=== PATIENT | male | born 1995 | race Caucasian/White ===

== ENCOUNTER 2021-11-05 06:48 | Emergency (ER) | payer OTHER ==
[~2021-11-05] VITALS: Ht 167.6 cm; Wt 108.9 kg
[2021-11-05 06:55] VITALS: BP 129/103
--- NOTE | 2021-11-05 07:03 | NUR ---
Place patient to Bed 4 and change to a gown.
--- NOTE | 2021-11-05 07:24 | NUR ---
DR. PIERRE BEDSIDE EVALUATINIG PT
[2021-11-05] MEDS ORDERED: KETOROLAC 60 MG/2 ML VIAL IM ONE (07:30)
--- NOTE | 2021-11-05 07:37 | NUR ---
26Y MALE PATIENT PRESENTS TO ED WITH NECK/BACK PAIN AND JAW PAIN. PT STATES "HE HAS HAD JAW CLICKING X1 MONTH." PER PATIENT THE BACK/NECK PAIN STARTED X1 HR AGO WHILE AT WORK. DENIES N/V/D; SKIN IS PINK/WARM/DRY; AAOX4 WITH EVEN AND STEADY GAIT; LUNGS CLEAR BL; HR EVEN AND REGULAR; PT DENIES ANY FEVER, CP, SOB, OR COUGH AT THIS TIME; PATIENT STATES PAIN OF 0/10 AT THIS TIME; VSS; PATIENT POSITIONED FOR COMFORT; HOB ELEVATED; BEDRAILS UP X2; BED DOWN. ER MD MADE AWARE OF PT STATUS. Hx : NONE
[2021-11-05] MEDS ORDERED: IBUP-2213 PO (08:19)
[2021-11-05] MEDS ORDERED: ACET-8386 PO (08:19)
[2021-11-05 08:38] VITALS: BP 129/103
--- NOTE | 2021-11-05 08:38 | NUR ---
Patient discharged with v/s stable. Written and verbal after care instructions given and explained. Patient alert, oriented and verbalized understanding of instructions. Ambulatory with steady gait. All questions addressed prior to discharge. ID band removed. Patient advised to follow up with PMD. Rx of IBUPROFEN AND HYDROCODONE/ACETAMINOPHEN given. Patient educated on indication of medication including possible reaction and side effects. Opportunity to ask questions provided and answered.
== END 2021-11-05 08:38 | disposition home or self-care (01) ==
LOC: MED 06:48
DX: M54.6 Pain in thoracic spine (principal); R68.84 Jaw pain; R19.7 Diarrhea, unspecified; F12.90 Cannabis use, unspecified, uncomplicated
CPT/HCPCS: 96372; 99283; J1885